=== PATIENT | male | born 1945 | race Caucasian/White ===

== ENCOUNTER 2017-05-27 18:11 | Emergency (ER) | payer MEDICARE, BC ==
[2017-05-27 18:25] VITALS: BP 126/84
[2017-05-27] MEDS ORDERED: TETANUS/DIPHTHERIA/PERTUSSIS 0.5 ML SYRINGE IM ONE ×3 (19:43→19:57)
--- NOTE | 2017-05-27 19:45 | ED Physician Documentation ---
PD HPI UPPER EXT INJURY - Stated complaint Stated Complaint: LT PINKY LAC - Chief complaint Chief Complaint: Laceration - History obtained from History obtained from: Patient - History of Present Illness Location: Other (Right-handed gentleman with unknown tetanus status was cutting a tomato at home and cut the tip of his left pinky. No other injuries.) Review of Systems Constitutional: reports: Reviewed and negative Throat: reports: Reviewed and negative Cardiac: reports: Reviewed and negative PD PAST MEDICAL HISTORY - Past Medical History Past Medical History: Yes Cardiovascular: Hypertension Musculoskeletal: Gout - Past Surgical History Past Surgical History: Yes - Present Medications Home Medications: Ambulatory Orders Medication Instructions Recorded Confirmed Allopurinol 400 mg PO DAILY 05/27/17 05/27/17 Aspirin [Aspirin EC] 81 mg PO ONCE 05/27/17 05/27/17 - Allergies Allergies/Adverse Reactions: Allergies Allergy/AdvReac Type Severity Reaction Status Date / Time Penicillins Allergy Rash Verified 05/27/17 18:21 - Social History Does the pt smoke?: No Smoking Status: Never smoker Does the pt drink ETOH?: No - Immunizations Immunizations: TDAP >10years/unknown PD ED PE NORMAL - Vitals Vital signs reviewed: Yes - General General: Alert and oriented X 3, No acute distress - Extremities Extremities: Other (There is a semicircular 1 cm flap laceration of the tip of the left pinky finger not involving the nail bed. No neurovascular compromise.) - Neuro Neuro: Alert and oriented X 3, Normal speech Results - Vitals Vitals: Vital Signs - 24 hr 05/27/17 18:23 Temperature 37.1 C Heart Rate 78 Respiratory 18 Rate Blood Pressure 126/84 H O2 Saturation 98 Oxygen O2 Source Room air Procedures - Laceration (location) L 5th fingertip Length in cm: 1 Wound type: Curved, Flap Neurovascular status: Sensory intact, Motor intact Anesthesia: Lidocaine 1%, With bicarb (digital block) Wound Preparation: Irrigated copiously NS Skin layer closure: Nylon, Interrupted, Size #-0 - enter number (5-0), Sutures - enter # (5) Other: Patient tolerated well, No complications, Neurovascular intact, Dressing applied, Tetanus booster given Complexity: Simple Departure - Departure Disposition: 01 Home, Self Care Clinical Impression: Laceration Condition: Good Record reviewed to determine appropriate education?: Yes Instructions: ED Laceration Hand Comments: Come back for any signs of infection which would include: Redness, swelling, drainage, increased pain, or fevers. Follow-up with your physician in 10-14 days for suture removal. Your blood pressure was elevated today on check into the emergency department. This does not mean that you have hypertension, it is a common phenomenon to come to the emergency department and have elevated blood pressure. I recommend that you see your primary care physician within the week to have it rechecked when you are feeling better.
[2017-05-27] MEDS ORDERED: BUFFERED LIDOCAINE 10 ML SYRINGE ONE (19:50)
== END 2017-05-27 20:32 | disposition home or self-care (01) ==
LOC: ED 18:11
DX: S61.217A Laceration without foreign body of left little finger without damage to nail, initial encounter (principal); W26.0XXA Contact with knife, initial encounter; Y93.G1 Activity, food preparation and clean up; Y92.010 Kitchen of single-family (private) house as the place of occurrence of the external cause; I10 Essential (primary) hypertension; M10.9 Gout, unspecified; Z79.82 Long term (current) use of aspirin; Z23 Encounter for immunization
CPT/HCPCS: 12001; 90471; 99282; 99283

== ENCOUNTER 2017-10-13 15:26 | Emergency (ER) | payer MEDICARE, BC ==
[2017-10-13 16:21] LABS: BILIRUBIN,URINE NEGATIVE (NEGATIVE); CLARITY,URINE CLEAR (CLEAR); GLUCOSE, URINE (UA) NEGATIVE (NEGATIVE); KETONES,URINE (UA) TRACE mg/dL (NEGATIVE); LEUKOCYTE ESTERASE, URINE MODERATE (NEGATIVE); NITRITE,URINE NEGATIVE (NEGATIVE); OCCULT BLOOD,URINE NEGATIVE (NEGATIVE); PH,URINE 5.5 PH (5.0-7.5); PROTEIN,URINE NEGATIVE (NEGATIVE); UROBILINOGEN,URINE 0.2 (NORMAL) E.U./dL (NORMAL)
[2017-10-13 16:29] LABS: BACTERIA,URINE Rare /HPF (None Seen); RBC,URINE None Seen /HPF (0-5); SQUAMOUS EPITHELIAL CELL,UR NONE SEEN (<= Few); WBC CLUMPS,URINE PRESENT
--- NOTE | 2017-10-13 17:54 | ED Physician Documentation ---
PD HPI ABD PAIN - Stated complaint Stated Complaint: ABD PAIN - Chief complaint Chief Complaint: Abd Pain - History obtained from History obtained from: Patient - History of Present Illness Timing - onset: How many days ago (few) Timing - duration: Days (few) Timing - details: Gradual onset, Still present Quality: Aching, Dull, Pain (left inguinal area and has a lump feeling, which he presumed is a . Went to PMD today and reduction was attempted. However PCP couple not get the tender lump to go back in, so referred to the ER.). No: Cramping Improved by: No: Eating Worsened by: Moving, Palpation. No: Eating Associated symptoms: No: Fever, Nausea, Vomiting, Diarrhea, Constipation, Melena Similar symptoms before: Has not had sx before Review of Systems Constitutional: denies: Fever, Chills, Myalgias Nose: denies: Rhinorrhea / runny nose, Congestion Throat: denies: Sore throat Cardiac: denies: Chest pain / pressure Respiratory: denies: Cough Skin: denies: Rash, Lesions PD PAST MEDICAL HISTORY - Past Medical History Cardiovascular: Hypertension Respiratory: None Neuro: None Musculoskeletal: Gout - Past Surgical History Past Surgical History: Yes - Present Medications Home Medications: Ambulatory Orders Medication Instructions Recorded Confirmed Allopurinol 400 mg PO DAILY 05/27/17 05/27/17 Aspirin [Aspirin EC] 81 mg PO ONCE 05/27/17 05/27/17 Calcium Channel Марина 10/13/17 HYDROcod/ACETAM 5/325 [[place] 5/325] 1 tab PO Q6H PRN #12 tablet 10/13/17 Hydrochlorothiazide 12.5 mg PO 10/13/17 Metronidazole [Flagyl] 500 mg PO BID #14 tablet 10/13/17 Naproxen 375 mg PO BID #15 tablet 10/13/17 Sulfamethox/Trimeth 800/160 1 each PO BID #14 tablet 10/13/17 [Bactrim Ds 800/160] - Allergies Allergies/Adverse Reactions: Allergies Allergy/AdvReac Type Severity Reaction Status Date / Time Penicillins Allergy Rash Verified 10/13/17 15:54 - Social History Does the pt smoke?: No Smoking Status: Never smoker Does the pt drink ETOH?: No - Immunizations Immunizations: TDAP >10years/unknown PD ED PE NORMAL - Vitals Vital signs reviewed: Yes - General General: Alert and oriented X 3, No acute distress, Well developed/nourished - HEENT HEENT: Pharynx benign - Neck Neck: Supple, no meningeal sign, No adenopathy - Cardiac Cardiac: RRR, No murmur - Respiratory Respiratory: Clear bilaterally - Abdomen Abdomen: Normal bowel sounds, Soft, Non tender, Non distended, No organomegaly - Male Male : Other (left inguinal area with soft fullness that seems c/w hernia. This is in left scrotal uper area as well. There is also 1-2 cm firm lump that is tender. Bedside U/S shows it to look like a lymph node thought. Testicles with normal lie and themselve are not tender.) Results - Vitals Vitals: Oxygen O2 Source Room air - Labs Labs: Microbiology 10/13/17 16:00 Urine Culture - Final Urine,Clean Catch Serratia Marcescens Laboratory Tests 10/13/17 10/13/17 10/13/17 16:00 18:39 18:39 WBC 12.6 H RBC 4.25 L Hgb 12.7 L Hct 38.7 L MCV 90.9 MCH 29.9 MCHC 32.9 RDW 13.5 Plt Count 185 MPV 7.1 L Neut # 10.3 H Lymph # 1.1 L [place] # 1.0 Eos # 0.0 Baso # 0.1 Absolute Nucleated RBC 0.01 Nucleated RBC % 0.0 Sodium 124 L Potassium 3.8 Chloride 90 L Carbon Dioxide 24 Anion Gap 10.0 BUN 21 H Creatinine 0.9 Estimated GFR (MDRD) 82 L Glucose 118 H Lactic Acid Calcium 8.8 Total Bilirubin 1.1 H AST 16 ALT 16 Alkaline Phosphatase 60 Total Protein 6.5 L Albumin 3.5 Globulin 3.0 Albumin/Globulin Ratio 1.2 Lipase 23 Urine Color YELLOW Urine Clarity CLEAR Urine pH 5.5 Ur Specific [place] 1.010 Urine Protein NEGATIVE Urine Glucose (UA) NEGATIVE Urine Ketones TRACE Urine Occult Blood NEGATIVE Urine Nitrite NEGATIVE Urine Bilirubin NEGATIVE Urine Urobilinogen 0.2 (NORMAL) Ur Leukocyte Esterase MODERATE H Urine RBC None Seen Urine WBC >25 H Urine WBC Clumps PRESENT Ur Squamous Epith Cells NONE SEEN Urine Bacteria Rare Ur Microscopic Review INDICATED Urine Culture Comments INDICATED 10/13/17 18:39 WBC RBC Hgb Hct MCV MCH MCHC RDW Plt Count MPV Neut # Lymph # [place] # Eos # Baso # Absolute Nucleated RBC Nucleated RBC % Sodium Potassium Chloride Carbon Dioxide Anion Gap BUN Creatinine Estimated GFR (MDRD) Glucose Lactic Acid 0.7 Calcium Total Bilirubin AST ALT Alkaline Phosphatase Total Protein Albumin Globulin Albumin/Globulin Ratio Lipase Urine Color Urine Clarity Urine pH Ur Specific [place] Urine Protein Urine Glucose (UA) Urine Ketones Urine Occult Blood Urine Nitrite Urine Bilirubin Urine Urobilinogen Ur Leukocyte Esterase Urine RBC Urine WBC Urine WBC Clumps Ur Squamous Epith Cells Urine Bacteria Ur Microscopic Review Urine Culture Comments - Rads (name of study) pelvic CT Radiology: Prelim report reviewed (right inguinal hernia. Left is okay. No steones. He does have diverticula and appearance of some diverticulitis in sigmoid. ) PD MEDICAL DECISION MAKING - ED course Complexity details: considered differential (he has a feeling of hernia in left inguinal area though not seen on CT (comment of right hernia, so wonder if got sides different). He has diverticulitis sigmoid, so reasonably that is what is causing his pain rather than the hernia. On bedside U/S the lump felt in left inguinal area appears like lymph node instead. ), d/w patient Departure - Departure Disposition: 01 Home, Self Care Clinical Impression: Sigmoid diverticulitis Inguinal pain Qualifiers: Laterality: left Qualified Code(s): R10.32 - Left lower quadrant pain Inguinal hernia Qualifiers: Obstruction and gangrene presence: without obstruction or gangrene Laterality: unspecified laterality Recurrence: non-recurrent Qualified Code(s): K40.90 - Unilateral inguinal hernia, without obstruction or gangrene, not specified as recurrent Condition: Stable Record reviewed to determine appropriate education?: Yes Instructions: ED Diverticulitis, ED Hernia Inguinal Follow-Up: Brenden Jimenez DO [Primary Care Provider] - SONIA DORADO MD [Provider Admit Priv/Credential] - Prescriptions: HYDROcod/ACETAM 5/325 [[place] 5/325] 1 tab PO Q6H PRN #12 tablet PRN Reason: Pain Metronidazole [Flagyl] 500 mg PO BID #14 tablet Naproxen 375 mg PO BID #15 tablet Sulfamethox/Trimeth 800/160 [Bactrim Ds 800/160] 1 each PO BID #14 tablet Comments: The CT scan report says a small hernia on the right though I wonder if they get their side strong as you do have little tenderness on the left. However I think the firm tenderness you have is more lymph node and not from the hernia. The CT scan also showed a sigmoid diverticulitis. Will treat that with Bactrim and Flagyl twice daily for a week. Also an anti-inflammatory naproxen twice daily for 7-10 days. Add hydrocodone if needed for pain. Drink lots of fluids. Recheck with your primary care in a few days for reevaluation. Regarding the hernia, you could talk with surgery to see if it needs repair if it continues to cause any discomfort. Discharge Date/Time: 10/13/17 21:15
[2017-10-13] MEDS ORDERED: HYDROmorphone 1 MG/ML SYRINGE IVP STA (18:26)
[2017-10-13 18:48] LABS: BASOPHILS # (AUTO) 0.1 10^3/uL (0.0-0.1); BASOPHILS % (AUTO) 0.5 %; EOSINOPHILS % (AUTO) 0.4 %; HGB - HEMOGLOBIN 12.7 g/dL (14.0-18.0); LYMPHOCYTES # (AUTO) 1.1 10^3/uL (1.5-3.5); MEAN CORPUSCULAR HEMOGLOBIN 29.9 pg (27.0-31.0); MEAN CORPUSCULAR HGB CONC 32.9 g/dL (32.0-36.0); MEAN CORPUSCULAR VOLUME 90.9 fL (80.0-94.0); MEAN PLATELET VOLUME 7.1 fL (7.4-11.4); MONOCYTES % (AUTO) 8.1 %; NEUTROPHILS # (AUTO) 10.3 10^3/uL (1.5-6.6); PLT - PLATELET COUNT 185 10^3/uL (130-450); RED BLOOD COUNT 4.25 10^6/uL (4.70-6.10); RED CELL DISTRIBUTION WIDTH 13.5 % (12.0-15.0); WHITE BLOOD COUNT 12.6 x10^3/uL (4.8-10.8)
[2017-10-13 19:02] LABS: ALBUMIN 3.5 g/dL (3.2-5.5); ALBUMIN/GLOBULIN RATIO 1.2 (1.0-2.2); BILIRUBIN,TOTAL 1.1 mg/dL (0.2-1.0); CALCIUM 8.8 mg/dL (8.5-10.3); CREATININE 0.9 mg/dL (0.6-1.2); TOTAL PROTEIN 6.5 g/dL (6.7-8.2)
[2017-10-13] MEDS ORDERED: IOPAMIDOL-300 100 ML VIAL ONE (19:26)
[2017-10-13] MEDS ORDERED: IOPAMIDOL-300 100 ML VIAL IVP ONE (19:48)
--- NOTE | 2017-10-13 20:15 | CT Preliminary Report ---
Exam: CT ABDOMEN/PELVIS W/ IMPRESSION: 1. Small right inguinal hernia containing a short segment of small bowel without bowel inflammation o r obstruction. No left-sided hernia. 2. Moderate colonic diverticulosis. Suspicious for mild diverticulitis of the sigmoid colon anteriorl y in the pelvis. 3. No abscess or free air. [facility] SITE ID: [id number]
--- NOTE | 2017-10-13 20:15 | CT Report ---
EXAM: CT ABDOMEN AND PELVIS EXAM DATE: 10/13/2017 07:48 PM. CLINICAL HISTORY: Left inguinal/scrotal mass; possible hernia. COMPARISONS: None. TECHNIQUE: Routine helical CT imaging was performed through the abdomen and pelvis. IV contrast: 100 ML ISOVUE 300. Enteric contrast: No. Reconstructions: Coronal and sagittal. In accordance with CT protocol optimization, one or more of the following dose reduction techniques w ere utilized for this exam: automated exposure control, adjustment of mA and/or KV based on patient s ize, or use of iterative reconstructive technique. FINDINGS: Lung Bases: Unremarkable. Liver: Normal. No masses. Gallbladder/Bile Ducts: Unremarkable. Spleen: Normal. Pancreas: Normal. Adrenal Glands: Normal. Kidneys: Normal. No masses or hydronephrosis. Peritoneal Cavity/Bowel: There are a moderate number of diverticula in the descending colon and sigmo id colon. There is a thickened diverticulum with mild adjacent fat stranding extending anteriorly off the sigmoid colon on series 3 image 60, suspicious for diverticulitis. There is a small right inguin al hernia containing a short segment of small bowel. The hernia defect measures 3 cm in diameter. No transition zone or bowel wall thickening of the hernia. Pelvic Organs: Normal. The bladder and visualized pelvic organs are within normal limits. Vasculature: There is aortic atherosclerotic vascular calcification without aneurysm. Bones: No significant abnormality. Other: None. IMPRESSION: 1. Small right inguinal hernia containing a short segment of small bowel without bowel inflammation o r obstruction. No left-sided hernia. 2. Moderate colonic diverticulosis. Suspicious for mild diverticulitis of the sigmoid colon anteriorl y in the pelvis. 3. No abscess or free air. [facility] Referring Provider Line: [phone] SITE ID: [id number]
[2017-10-13] MEDS ORDERED: metroNIDAZOLE 250 MG TABLET PO STA (20:54)
[2017-10-13] MEDS ORDERED: KETOROLAC 30 MG/ML VIAL IVP STA (20:54)
[2017-10-13] MEDS ORDERED: HYDROcod/ACET 5/325 Prepack 6 PO STA (20:54)
[2017-10-13] MEDS ORDERED: SULFAMETH/TRIMETH DS 800/160 MG TABLET PO STA (20:54)
[2017-10-13 21:16] VITALS: BP 123/70
== END 2017-10-13 21:15 | disposition home or self-care (01) ==
LOC: ED 15:26
DX: K57.32 Diverticulitis of large intestine without perforation or abscess without bleeding (principal); K40.90 Unilateral inguinal hernia, without obstruction or gangrene, not specified as recurrent; I10 Essential (primary) hypertension; Z79.82 Long term (current) use of aspirin
CPT/HCPCS: 36415; 74177; 80053; 81001; 83605; 83690; 85025; 87077; 87086; 87181; 96374; 96375; 99283; 99284; A9270; J1170; Q9967; 81003

== ENCOUNTER 2017-12-01 12:49 | Day surgery (SDC) | payer MEDICARE, BC ==
[2017-12-01] MEDS ORDERED: LACTATED RINGERS 1,000 ML IV ONE (13:30)
--- NOTE | 2017-12-01 13:35 | SURGERY HX AND PHYSICAL(T) ---
Surgical History & Physical - PMH/PSH/Social Hx Does the pt have a hx of MRSA?: No Neurological History: None Cardiovascular: Hypertension Respiratory: None Musculoskeletal: Gout Eyes Ears Nose Throat (EENT): Other Smoking Status: Never smoker Does the pt drink ETOH?: No - Home Meds and Allergies Home Medications: Allopurinol 400 mg PO DAILY 05/27/17 Aspirin [Aspirin EC] 81 mg PO ONCE 05/27/17 Benazepril HCl 40 mg ORAL DAILY 11/28/17 Cholecalciferol (Vitamin D3) [Vitamin D3] 1,000 unit ORAL DAILY 11/28/17 Multivitamin [Multivitamins] 1 tab ORAL DAILY 11/28/17 hydroCHLOROthiazide [Hydrochlorothiazide] 25 mg ORAL DAILY 11/28/17 Allergies/Adverse Reactions: Allergies Allergy/AdvReac Type Severity Reaction Status Date / Time Penicillins Allergy Rash Verified 10/13/17 15:54 - Vital Signs Temperature: 36.6 C Respiratory Rate: 16 O2 Saturation: 99 Weight (kg): 80.6 kg Height: 1.78 m - Patient Review Patient Review: Problems were reviewed with the patient during this visit. Medications were reviewed with the patient during this visit. Allergies were reviewed this patient during this visit. Pertinent Tests Reviewed: All pertitent test for this patient were reviewed. - Assessment & Plan Assessment and Plan: This very pleasant 72-year-old male was initially seen by Dr. Gutierrez on October 28 as a follow-up to a visit at the emergency department at [facility] on October 13. There were numerous issues that were addressed in the emergency department on October 13 including a right inguinal hernia with bowel in it, left inguinal pain which turned out to be an enlarged lymph node which improved over the interim with antibiotics, and diverticulitis. It was determined that the patient never had a previous colonoscopy and hence he returns today to have the colonoscopy. There have been no substantive changes to his history and physical that was done by Dr. Sanchez on October 28 other than the fact that he is suffering more from his allergies and his index finger was infected after it was stuck with a blueberry thorn. Current Meds: VITAMIN D 1000 UNIT ORAL TABLET (CHOLECALCIFEROL) Take one tablet by mouth daily for vit D deficiency ASPIRIN EC 81 MG ORAL TABLET DELAYED RELEASE (ASPIRIN) Take one tablet by mouth once daily with food BENAZEPRIL HCL 20 MG ORAL TABLET (BENAZEPRIL HCL) Take one tablet by mouth once daily for high blood pressure HYDROCHLOROTHIAZIDE 12.5 MG ORAL CAPSULE (HYDROCHLOROTHIAZIDE) Take one tablet by mouth every morning ALLOPURINOL 100 MG ORAL TABLET (ALLOPURINOL) Take four tablets by mouth once daily to prevent gout BACTRIM 400-80 MG ORAL TABLET (SULFAMETHOXAZOLE-TRIMETHOPRIM) Take one tablet by mouth twice daily NAPROXEN 375 MG ORAL TABLET (NAPROXEN) Take one tablet by mouth twice daily METRONIDAZOLE 500 MG ORAL TABLET (METRONIDAZOLE) Take one tablet by mouth twice daily for seven days Past Medical History: Heart murmur HTN Sleep Apnea CPAP Heartburn Acid Reflux Loose/Fragile teeth Depression Family History Summary: Mother (biol.) - Has Family History of Other Medical Problems - Heart condition - Entered On: 10/28/2017 Father (biol.) - Has Family History of Other Medical Problems - Sleep Apnea - Entered On: 10/28/2017 Risk Factors: Smoked Tobacco Use: Never smoker Drug use: no Alcohol use: no Exercise: yes Times per week: 2 Type of Exercise: hiking and walking PENICILLIN V POTASSIUM (Critical) Physical Exam General: well developed, well nourished, in no acute distress, evaluated in cubicle 3 at [facility] standing Lungs: clear bilaterally to A & P Heart: regular rate and rhythm, S1, S2 without murmurs, rubs, gallops, or clicks, I could not appreciate a murmur Abdomen: Small umbilical hernia present and easily reducible Genitalia: I did not re-examine Extremities: no clubbing, cyanosis, edema, or deformity noted with normal full range of motion of all joints Psych: alert and cooperative; normal mood and affect; normal attention span and concentration Impression & Recommendations: Screening colonoscopy with possible biopsies and/or polypectomies. Indications , procedure, and risks including but not limited to perforation requiring operative repair, bleeding with its risks, and were fully explained to him. Review of his history does not reveal any significant systemic disease that would contraindicate use of conscious sedation or MAC anesthesia. All questions were fully answered. Verbal and written consent was obtained. The patient in preparation for his colonoscopy has been n.p.o. and his colon has been mechanically prepped. 20 minutes of [id number] time spent with the patient the majority of which was spent in discussion and in the generation of this document
[2017-12-01] MEDS ORDERED: fentaNYL 250 MCG/5 ML VIAL IVP ONE (14:01)
[2017-12-01] MEDS ORDERED: MIDAZOLAM 2 MG/2 ML VIAL IVP ONE (14:01)
[2017-12-01 14:59] VITALS: BP 107/63
== END 2017-12-01 12:50 | disposition home or self-care (01) ==
LOC: SDS 12:49
PROVIDERS: ATTEND Surgery
PROC: 0DJD8ZZ Inspection of Lower Intestinal Tract, Via Natural or Artificial Opening Endoscopic (ICD-10-PCS; principal; 2017-12-01 14:15)
DX: Z12.11 Encounter for screening for malignant neoplasm of colon (principal); K57.30 Diverticulosis of large intestine without perforation or abscess without bleeding; K64.8 Other hemorrhoids; I10 Essential (primary) hypertension; G47.30 Sleep apnea, unspecified; K21.9 Gastro-esophageal reflux disease without esophagitis; Z79.82 Long term (current) use of aspirin
CPT/HCPCS: G0121; J3010; J7120

== ENCOUNTER 2019-10-12 16:14 | Emergency (ER) | payer MEDICARE, BC ==
[2019-10-12 16:23] VITALS: BP 153/77
[2019-10-12] MEDS ORDERED: BUFFERED LIDOCAINE 10 ML SYRINGE SUBQ STA (18:51)
--- NOTE | 2019-10-12 19:18 | ED Physician Documentation ---
PD HPI UPPER EXT INJURY - Stated complaint Stated Complaint: RT INDEX FINGER INJ - Chief complaint Chief Complaint: Ext Problem - History obtained from History obtained from: Patient (This 74-year-old male patient comes in today with chief complaint of a splinter in his right index finger on the pad side. He was at home working with some woodwork when he noticed pain in his finger pulsing her back in the splint to their try to pull part of it out and some stayed behind. He was unsuccessful in extracting this on his own and his daughter prompted him to come in to be seen. Pt states last tetanus within the past 5 years.) Review of Systems Constitutional: reports: Reviewed and negative Cardiac: reports: Reviewed and negative Respiratory: reports: Reviewed and negative Skin: reports: Other (Right index finger pad side splinter.) PD PAST MEDICAL HISTORY - Past Medical History Cardiovascular: Hypertension Respiratory: None Musculoskeletal: Gout - Past Surgical History Past Surgical History: Yes HEENT: Other - Present Medications Home Medications: Ambulatory Orders Medication Instructions Recorded Confirmed Aspirin [Aspirin EC] 81 mg PO ONCE 05/27/17 11/28/17 allopurinoL [Allopurinol] 400 mg PO DAILY 05/27/17 12/01/17 Benazepril HCl 40 mg ORAL DAILY 11/28/17 12/01/17 Cholecalciferol (Vitamin D3) 1,000 unit ORAL DAILY 11/28/17 12/01/17 [Vitamin D3] Multivitamin [Multivitamins] 1 tab ORAL DAILY 11/28/17 12/01/17 hydroCHLOROthiazide 25 mg ORAL DAILY 11/28/17 12/01/17 [Hydrochlorothiazide] - Allergies Allergies/Adverse Reactions: Allergies Allergy/AdvReac Type Severity Reaction Status Date / Time Penicillins Allergy Rash Verified 10/12/19 16:21 - Social History Does the pt smoke?: No Smoking Status: Never smoker Does the pt drink ETOH?: No - Immunizations Immunizations: TDAP >10years/unknown PD ED PE NORMAL - General General: Alert and oriented X 3, No acute distress - Extremities Extremities: Other PD ED PE EXPANDED - Extremities Extremities: Other (Splinter noted to the pad surface of the right index finger less than quarter centimeter) Results - Vitals Vitals: Vital Signs - 24 hr 10/12/19 16:21 Temperature 36.8 C Heart Rate 81 Respiratory 17 Rate Blood Pressure 153/77 H O2 Saturation 96 Oxygen O2 Source Room air Procedures - FB removal FB location: Other (right index finger) FB removal preparation: Local anesthesia-specify (lidocaine 2% buffered; 0.5 ml at site of splinter.) Removal method: Other (tunnel with a 20 ga needle.) FB removal aftercare: No complications, Patient tolerated well, Removed successfully PD MEDICAL DECISION MAKING - ED course Complexity details: reviewed old records, d/w patient Departure - Departure Disposition: 01 Home, Self Care Clinical Impression: Splinter in skin Condition: Good Instructions: ED Splinter Removal Ch Comments: Soak your finger in warm epsom salt once or twice a day for the next several days. Keep the site of the procedure clean, covered with antibiotic ointment, changing the bandaid daily or more frequently if soiled. You can take tylenol or ibuprofen pain in the index finger from tonights procedure. You are welcome to follow up if your symptoms worsen.
== END 2019-10-12 19:28 | disposition home or self-care (01) ==
LOC: ED 16:14
DX: S60.450A Superficial foreign body of right index finger, initial encounter (principal); W45.8XXA Other foreign body or object entering through skin, initial encounter; Y93.89 Activity, other specified; Y92.009 Unspecified place in unspecified non-institutional (private) residence as the place of occurrence of the external cause; I10 Essential (primary) hypertension; Z79.82 Long term (current) use of aspirin; Z88.0 Allergy status to penicillin
CPT/HCPCS: 99283

== ENCOUNTER 2021-03-27 13:27 | Outpatient (CLI) | payer MEDICARE, BC | END 2021-03-27 13:28 | disposition home or self-care (01) | LOC: LAB 13:27 | PROVIDERS: ATTEND Family Medicine | DX: F40.298 Other specified phobia (principal) | CPT/HCPCS: 81599 ==

== ENCOUNTER 2021-04-13 14:19 | Outpatient (CLI) | payer MEDICARE, BC ==
[2021-04-13 15:22] VITALS: BP 145/80
--- NOTE | 2021-04-13 15:22 | SLEEP CARE CONSULTATION ---
Information from patient questionnaire entered by Amber Kim. I have reviewed and concur with the information entered by Amber Kim. This document represents the service I personally performed and the decisions made by me, Zoë Palomo ARNP. History of Present Illness Service Date and Time: 04/13/2021 1419 Reason for Visit: New patient, Previously diagnosed sleep apnea (moderate - AHI - 24.7), sleep apnea on CPAP therapy ([facility]), Re-establish care (last seen 06/2014) Chief Complaint: reports: Other (to acquire new equipment) Date of Onset: before retiring in 2001 Usual bedtime: 9-10 pm Time it takes to fall asleep: 15 minutes Snores at night: Yes Observed to quit breathing while asleep: Yes Number of times waking at night: 2 Reasons for waking at night: reports: Bathroom Toss, Turn, or Twitch while sleeping: Yes Recalls having dreams: Yes Usually gets out of bed at: 7:30 am Feels refreshed in the morning: Yes (fair) Morning headache: No Sleepy or fatigued during the day: Yes (occasionally) Ever fallen asleep while driving: No Takes day naps: Yes (occasionally) Dreams during day naps: No Prior sleep studies: Yes Year and Where: 2007 - [facility]; [facility] [place], [place] Type of Sleep Study: Polysomnography Additional HPI information: DOROTHY ANDERSON was previously diagnosed to have moderate, AHI 24.7, obstructive sleep apnea-hypopnea syndrome and comes in today for re-establishing care for CPAP therapy. - Parasomnia Symptoms Ever been unable to move upon waking from sleep: No Walks in sleep: No Talks in sleep: No Ever acted out dreams in sleep: No Ever felt weak in the knees when startled or emotional: No Bothered by creepy, crawly, restless sensations in legs: No Problems with memory or concentration: No CPAP Compliance Data - Data Reviewed with Patient Average duration of nightly device use: 8 hours 43 minutes Compliance rate %: 100 Current pressure setting (cmH2O): 13 Average residual AHI: 1.0 Average large leak: 2 mins 52 secs Compliance data discussion: [facility] He is using a nasal cushion mask. His device is a REMstar 60 series that is on the recall. He needs a new device. Subjective Patient concerns: reports: dry mouth, nose, throat (sometimes). denies: aerophagia, mask discomfort, air blowing in eyes, mask leak noise, condensation in mask/hose, nasal congestion, epistaxis, other Observed to snore while using device: No Current pressure setting perceived as: comfortable On therapy, patient: reports: sleeping better, awakening more refreshed, being more awake and alert during the day, more rested overall. denies: drowsiness while driving Initial [place] Sleepiness Scale score: 10 (in 2007) Current [place] Sleepiness Scale score: 4 Past Medical History Past Medical History: reports: Hypertension, Gout, Other (eczema) Social History The patient's occupation is a Retired. Patient is and lives in [place]. Have you smoked in the past 12 months: No Alcohol use: No Caffeine use: Yes Caffeine amount and frequency: 2 cups of tea in the morning Family History Family history of sleep disordered breathing: Yes Family Hx Sleep Apnea: Father: Snoring, Sleep apnea - Untreated, Sibling: Sleep apnea - Treated Allergies and Home Medications Drug allergies reviewed: Yes (penicillin) Home medication list reviewed: Yes Allergy and home medication list: Alopurinol 400 mg Benzapril 25 mg HCTZ Review of Systems Weight gain over past 5 years: 26 Weight loss over past 5 years: 17 Cardiovascular: reports: high blood pressure, leg or foot swelling Gastrointestinal: reports: heartburn Ear/Nose/Throat: reports: nasal congestion, sinus problems Musculoskeletal: reports: other (siatica) Immunologic: reports: sneezing Physical Exam Blood Pressure: 145/80 Cuff size: long Heart Rate: 70 O2 Saturation: 97 Height: 5 ft 10 in Weight: 194 lb Body Mass Index: 27.8 BMI Classification: Overweight Heart: regular rate and rhythm Lungs: clear bilaterally Impression and Plan 1. Obstructive Sleep Apnea-Hypopnea Syndrome, moderate, with excellent treatment compliance and good apnea control. On CPAP therapy, the patient has better sleep quality and is more rested overall. Patient has concerns about getting sleep because he [place] in an area where there [place] a lot of jet noise. The jet noise he feels limits his ability to go out side of his home as well as to sleep at night. He is also concerned that it might be contributing to toxins building up in his body from the jet exhaust. Patient has an old REMstar 60 series device that was last updated in 2012. Patient has already registered their device for the recall. Patient denies any black particles seen in machine or hoses, any unusual odors coming from device. Patient has not experienced any physical symptoms such as upper airway irritation, headache, skin or eye irritation, asthma, nausea/vomiting, difficulty breathing or chest pain. Patient informed that they may use an inline CPAP filter that they can obtain online to reduce chance of any particles being inhaled or ingested. We discussed thoroughly the health risks of not using the CPAP versus continuing use with the filter in place. If patient is not able to sleep due to waking up choking, gasping for air or other respiratory distress that they may decide to continue using it until it is either replaced or repaired. Since the patients current machine is at least 5 years old the patient is opting to update their device with a device that is not on the recall. Patient voiced understanding and agreement with plan. Patient's apnea severity and rationale for treatment to reduce apnea, improve sleep quality and reduce cardiovascular and cerebrovascular events was reviewed. I also reviewed the benefit of consistent device use of CPAP for hypertension, and gout. * Continue auto CPAP pressure at 13 cmH2O * Update machine * Update supplies as needed * Notify me if snoring with mask or feeling that the pressure is too much or too little * Attempt to lose weight * Call this office if any problems using CPAP * Return for follow up one month after obtaining new device, or sooner if concerns arise Counseling Topics: Spare mask, Weight loss health impact Visit Type: In Office Time Spent with Patient (minutes): 41 Provider Statement: I spent 100% of the Face to Face Visit with the patient with greater than 50% spent counseling the patient and coordination of care.
== END 2021-04-13 14:20 | disposition home or self-care (01) ==
LOC: SC 14:19
PROVIDERS: ATTEND Nurse Practitioner Family
DX: G47.33 Obstructive sleep apnea (adult) (pediatric) (principal)
CPT/HCPCS: 99203; G0463; 99212

== ENCOUNTER 2021-06-05 14:47 | Outpatient (CLI) | payer MEDICARE, BC ==
[2021-06-05 15:33] VITALS: BP 123/83
--- NOTE | 2021-06-05 15:33 | SLEEP CARE CONSULTATION ---
Information from patient questionnaire entered by Jl Bell MA. I have reviewed and concur with the information entered by Jl Bell MA. This document represents the service I personally performed and the decisions made by , Zoë Palomo ARNP. History of Present Illness Service Date and Time: 06/05/2021 1447 Previous diagnosis: Moderate, Obstructive Sleep Apnea-Hypopnea Syndrome AHI: 24.7 Reason for follow up: first compliance after device update Equipment type: CPAP Equipment obtained from: [employer] (getting supplies as needed) Mask style: Nasal Backup mask available: Yes (old mask) Last cushion change: 1 month Prior sleep studies: Yes Year and Where: 2007 - [facility]; [facility] - [facility] [place], [place] Type of Sleep Study: Polysomnography HPI additional information: DOROTHY ANDERSON was diagnosed to have moderate, AHI 24.7, obstructive sleep apnea-hypopnea syndrome and returned today for CPAP therapy first compliance after updating device follow-up. Sleep Study - Results Type of Sleep Study: Polysomnography Prior sleep studies: Yes Year and Where: 2007 - [facility]; 2002 - [facility] [place] [place] CPAP Compliance Data - Data Reviewed with Patient Average duration of nightly device use: 8 hours 34 minutes Compliance rate %: 100 Current pressure setting (cmH2O): 13 Average residual AHI: 1.1 Central apnea: .9 Obstructive apnea: .1 Hypopnea: .1 Subjective Patient concerns: reports: dry mouth, nose, throat, other (water use, seems to much ). denies: aerophagia, mask discomfort, air blowing in eyes, mask leak noise, condensation in mask/hose, nasal congestion, epistaxis Observed to snore while using device: No Current pressure setting perceived as: comfortable On therapy, patient: reports: sleeping better, awakening more refreshed, being more awake and alert during the day, more rested overall. denies: drowsiness while driving Initial [place] Sleepiness Scale score: 10 (in 2007) Current [place] Sleepiness Scale score: 2 Allergies and Home Medications Home medication list reviewed: Yes (no changes) Review of Systems Review of systems same as previous: Yes (no changes) Physical Exam Blood Pressure: 123/83 (right) Cuff size: wrist Heart Rate: 63 O2 Saturation: 96 Height: 5 ft 10 in Weight: 200 lb Body Mass Index: 28.7 BMI Classification: Overweight Impression and Plan 1. Obstructive Sleep Apnea-Hypopnea Syndrome, moderate, with excellent treatment compliance and good apnea control. On CPAP therapy, the patient has better sleep quality and is more rested overall. Patient is satisfied with current CPAP therapy and has significant improvement of sleep apnea. He is happy with new device. Patient's apnea severity and rationale for treatment to reduce apnea, improve sleep quality and reduce cardiovascular and cerebrovascular events was reviewed. I also reviewed the benefit of consistent device use of CPAP for hypertension. Patient was encouraged to try to lose weight to improve his overall health and reduce apneas. * Continue CPAP pressure at 13 cmH2O * Notify me if snoring with mask or feeling that the pressure is too much or too little * Attempt to lose weight * Call this office if any problems using CPAP * Return for follow up in 1 year, or sooner if concerns arise Counseling Topics: Spare mask, Weight loss health impact Visit Type: In Office Time Spent with Patient (minutes): 29 Provider Statement: I spent 100% of the Face to Face Visit with the patient with greater than 50% spent counseling the patient and coordination of care.
== END 2021-06-05 14:48 | disposition home or self-care (01) ==
LOC: SC 14:47
PROVIDERS: ATTEND Nurse Practitioner Family
DX: G47.33 Obstructive sleep apnea (adult) (pediatric) (principal)
CPT/HCPCS: 99213; G0463; 99212

== ENCOUNTER 2022-07-09 14:15 | Outpatient (CLI) | payer MEDICARE, BC ==
[2022-07-09 15:00] VITALS: BP 130/82
--- NOTE | 2022-07-09 15:00 | SLEEP CARE CONSULTATION ---
Information from patient questionnaire entered by Yris Peña. I have reviewed and concur with the information entered by Yris Peña. This document represents the service I personally performed and the decisions made by me, Zoë Palomo ARNP. History of Present Illness Service Date and Time: 07/09/2022 1415 Previous diagnosis: Moderate, Obstructive Sleep Apnea-Hypopnea Syndrome AHI: 24.7 Reason for follow up: annual (LAST SEEN 06/2021) Equipment type: CPAP (RESMED Airsense 10) Equipment obtained from: [employer] (getting supplies as needed) Mask style: Nasal (over the nose) Mask brand: Respironics Backup mask available: No (will keep old mask when replaced) Prior sleep studies: Yes Year and Where: 2007 - [facility]; 2002 - [facility] [place], [place] Type of Sleep Study: Polysomnography HPI additional information: DOROTHY ANDERSON was diagnosed to have moderate, AHI 24.7, obstructive sleep apnea-hypopnea syndrome and returned today for CPAP therapy annual follow-up. Sleep Study - Results Type of Sleep Study: Polysomnography Prior sleep studies: Yes Year and Where: 2007 - [facility]; 2002 - [facility] [place] [place] CPAP Compliance Data - Data Reviewed with Patient Average duration of nightly device use: 8 HRS 17 MIN Compliance rate %: 99 (01/09/22-07/07/22; 179/180 days used) Current pressure setting (cmH2O): 13 Average residual AHI: 0.9 Central apnea: 0.7 Obstructive apnea: 0.1 Subjective Missed days of use due to: reports: other (power outages) Patient concerns: reports: dry mouth, nose, throat (occasional). denies: aerophagia, mask discomfort, air blowing in eyes, mask leak noise, condensation in mask/hose, nasal congestion, epistaxis Observed to snore while using device: No Current pressure setting perceived as: comfortable On therapy, patient: reports: sleeping better, awakening more refreshed, being more awake and alert during the day, more rested overall. denies: drowsiness while driving Initial [place] Sleepiness Scale score: 10 (in 2007) Current [place] Sleepiness Scale score: 5 (07/09/2022) Allergies and Home Medications Drug allergies reviewed: Yes (pcn) Home medication list reviewed: Yes (no changes) Review of Systems Review of systems same as previous: Yes (no changes) Physical Exam Vital signs obtained and entered by: YRIS Motta MA Blood Pressure: 130/82 (LEFT ARM) Cuff size: regular Heart Rate: 94 O2 Saturation: 95 Height: 5 ft 10 in Weight: 200 lb Body Mass Index: 28.7 BMI Classification: Overweight Impression and Plan 1. Obstructive Sleep Apnea-Hypopnea Syndrome, moderate, with good treatment compliance and good apnea control. On CPAP therapy, the patient has better sleep quality and is more rested overall. Patient has significant improvement of their sleep apnea and are satisfied with current CPAP therapy. Patient has occasional dry mouth. Oral dryness can be reduced by adjusting humidity setting higher or heated hose lower or by adjusting both settings. Patient informed that there are oral dryness products that can be used to reduce dryness such as Biotene products, Dry mouth rinse and Xylomelts. Patient's apnea severity and rationale for treatment to reduce apnea, improve sleep quality and reduce cardiovascular and cerebrovascular events was reviewed. I also reviewed the benefit of consistent device use of CPAP for hypertension. 2. Overweight, unspecified. Currently patients BMI is 28.7. Obesity increases the risk of apnea, CPAP pressure requirements and overall health risks especially cardiovascular and diabetes. Thus patient is advised to lose weight. * Continue CPAP pressure at 13 cmH2O * Update supplies * Notify me if snoring with mask or feeling that the pressure is too much or too little * Attempt to lose weight * Call this office if any problems using CPAP * Return for follow up in 1 year, or sooner if concerns arise Counseling Topics: Spare mask, Weight loss health impact Visit Type: In Office Time Spent with Patient (minutes): 30 Provider Statement: I spent 100% of the Face to Face Visit with the patient with greater than 50% spent counseling the patient and coordination of care.
== END 2022-07-09 14:16 | disposition home or self-care (01) ==
LOC: SC 14:15
PROVIDERS: ATTEND Nurse Practitioner Family
DX: G47.33 Obstructive sleep apnea (adult) (pediatric) (principal); E66.3 Overweight; Z68.28 Body mass index [BMI] 28.0-28.9, adult
CPT/HCPCS: 99214; G0463; 99212

== ENCOUNTER 2023-07-09 13:40 | Outpatient (CLI) | payer MEDICARE, BC ==
--- NOTE | 2023-07-09 14:24 | Sleep Patient Instructions ---
Sleep Center Visit Summary - Patient Visit Information Reason for Visit: Annual Visit - Patient Instructions Additional Instructions: You will continue with CPAP therapy with pressure set at 13 cmH2O. A supply prescription will be updated with your DME. We encourage you to continue to try to lose weight. Please follow up with the sleep care office in 1 year. - Clinic Information Contact: [facility] [address] [place] [address] [email or web address] T: [phone]
--- NOTE | 2023-07-09 14:24 | SLEEP CARE CONSULTATION ---
Information from patient questionnaire entered by Yris Peña. I have reviewed and concur with the information entered by Yris Peña. This document represents the service I personally performed and the decisions made by me, Zoë Palomo ARNP. History of Present Illness Service Date and Time: 07/09/2023 1340 Previous diagnosis: Moderate, Obstructive Sleep Apnea-Hypopnea Syndrome AHI: 24.7 Reason for follow up: annual (LAST SEEN 06/2022) Equipment type: CPAP (RESMED Airsense 10; s/u 04/2021) Equipment obtained from: [employer] (getting supplies as needed) Mask style: Nasal (over the nose) Mask brand: Respironics (Dreamwear) Backup mask available: Yes Last cushion change: 1 day ago Prior sleep studies: Yes Year and Where: 2007 - [facility]; 2002 - [facility] [place], [place] Type of Sleep Study: Polysomnography HPI additional information: DOROTHY ANDERSON was diagnosed to have moderate, AHI 24.7, obstructive sleep apnea-hypopnea syndrome and returned today for CPAP therapy annual follow-up. Sleep Study - Results Type of Sleep Study: Polysomnography Prior sleep studies: Yes Year and Where: 2007 - [facility]; 2002 - [facility] [place], [place] CPAP Compliance Data - Data Reviewed with Patient Average duration of nightly device use: 8 HRS 34 MINS Compliance rate %: 100 (07/07/2022-07/06/2023; 365/365 days used) Current pressure setting (cmH2O): 13 Average residual AHI: 1.1 Central apnea: 0.8 Obstructive apnea: 0 Average large leak: 11.4 L/min Subjective Missed days of use due to: reports: other (power outages) Patient concerns: reports: mask leak noise, dry mouth, nose, throat. denies: aerophagia, mask discomfort, air blowing in eyes, condensation in mask/hose, nasal congestion, epistaxis Observed to snore while using device: No Current pressure setting perceived as: comfortable On therapy, patient: reports: sleeping better, awakening more refreshed, being more awake and alert during the day, more rested overall. denies: drowsiness while driving Initial [place] Sleepiness Scale score: 10 (in 2007) Current [place] Sleepiness Scale score: 5 (07/09/23) Allergies and Home Medications Known drug allergies: Yes (as listed) Drug allergies reviewed: Yes Home medication list reviewed: Yes (no changes) Allergy and home medication list: Allergies Penicillins Allergy (Verified 07/08/23 15:38) Rash Review of Systems Review of systems same as previous: Yes (no change) Physical Exam Vital signs obtained and entered by: YRIS Motta MA Blood Pressure: 126/70 (LEFT ARM) Cuff size: regular Heart Rate: 70 O2 Saturation: 97 Height: 5 ft 10 in Weight: 200 lb 9.6 oz Body Mass Index: 28.8 BMI Classification: Overweight Impression and Plan 1. Obstructive Sleep Apnea-Hypopnea Syndrome, moderate, with good treatment compliance and good apnea control. On CPAP therapy, the patient has better sleep quality and is more rested overall. Patient has significant improvement of their sleep apnea and is satisfied with current CPAP therapy. Patient has some dry mouth and I encouraged him to try a chinstrap or snoring strips to keep his lips together to reduce oral dryness. He voiced understanding. Patient's apnea severity and rationale for treatment to reduce apnea, improve sleep quality and reduce cardiovascular and cerebrovascular events was reviewed. I also reviewed the benefit of consistent device use of CPAP for hypertension. 2. Overweight, unspecified. Currently patients BMI is 28.8. Obesity increases the risk of apnea, CPAP pressure requirements and overall health risks especially cardiovascular and diabetes. Thus patient is advised to lose weight. * Continue CPAP pressure at 13 cmH2O * Update supply prescription * Notify me if snoring with mask or feeling that the pressure is too much or too little * Attempt to lose weight * Call this office if any problems using CPAP * Return for follow up in 1 year, or sooner if concerns arise Counseling Topics: Spare mask, Weight loss health impact Prescriptions: Device supplies Follow up with Sleep Care in: 1 year Visit Type: In Office Time Spent with Patient (minutes): 26 Provider Statement: I spent 100% of the Face to Face Visit with the patient with greater than 50% spent counseling the patient and coordination of care.
[2023-07-09 14:28] VITALS: BP 126/70; O2SAT 97
== END 2023-07-09 13:41 | disposition home or self-care (01) ==
LOC: SC 13:40
PROVIDERS: ATTEND Nurse Practitioner Family
DX: G47.33 Obstructive sleep apnea (adult) (pediatric) (principal); E66.3 Overweight; Z68.28 Body mass index [BMI] 28.0-28.9, adult
CPT/HCPCS: 99213; G0463; 99212